=== PATIENT | female | born 1995 | race Caucasian/White ===

== ENCOUNTER → 2023-06-07 | Outpatient (CLI) | payer MEDICAID, SELFPAY ==
[2023-06-07 11:02] LABS: Absolute Lymphocyte Count 1.83 X10^3/uL (0.83-4.51); Absolute Neutrophil Count 5.4 X10^3/uL (2.0-7.7); Basophil# 0.02 X10^3/uL; Basophil% 0.3 % (0-1); Eosinophil# 0.22 X10^3/uL; Eosinophils% 2.8 % (0-5); Hemoglobin 11.7 g/dL (12.0-15.0); Lymphocyte # 1.83 X10^3/ul (0.83-4.51); Mean Corp Hgb Conc 31.6 g/dL (32-36); Mean Corpuscular Hgb 28.3 pg (27.0-32.0); Mean Corpuscular Volume 89.6 fL (81-99); Mean Platelet Vol. 10.7 fl (6.2-12.0); Monocyte# 0.51 X10^3/uL; Monocyte% 6.4 % (0-10); NRBC Flagged by Analyzer 0 % (0-5); Neutrophil # 5.35 X10^3/uL (2.7-7.7); Platelet Count 183 K/mm3 (150-450); RBC Distribution Width CV 12.7 % (11.6-14.6); RBC Distribution Width SD 41.4 fl (35.1-43.9); Red Blood Count 4.13 M/mm3 (4.2-5.4)
[2023-06-07 11:19] LABS: Glucose Challenge Gest 1H 50g 124 mg/dL (70-140)
[2023-06-07 11:50] LABS: NATERA MAILED SPECIMEN
[2023-06-07 12:03] LABS: HIV - WCH Non-Reactive (Nonreactive); Hepatitis C Antibody Non-Reactive (Nonreactive); Rubella IgG Reactive (Nonreactive); Syphilis Antibodies Non-reactive
[2023-06-08 22:07] LABS: Chlamydia By Nucleic Acid AMP Negative (Negative); Gonococcus By Nucleic Acid AMP Negative (Negative)
== END | disposition home or self-care (01) ==
PROVIDERS: Referring Provider Registered Nurse; Visit Provider Registered Nurse
DX: Z34.82 Encounter for supervision of other normal pregnancy, second trimester (principal)
CPT/HCPCS: 36415; 82950; 85025; 86703; 86762; 86780; 86803; 86850; 86900; 86901; 87491; 87591

== ENCOUNTER → 2023-07-07 | Outpatient (CLI) | payer MEDICAID, SELFPAY ==
--- NOTE | 2023-07-07 08:11 | EKG12_ITS ---
Test Reason : PALPS Blood Pressure : / mmHG Vent. Rate : 091 BPM Atrial Rate : 091 BPM P-R Int : 158 ms QRS Dur : 070 ms QT Int : 342 ms P-R-T Axes : 034 012 031 degrees QTc Int : 420 ms Normal sinus rhythm Normal ECG Confirmed by YORDAN ORTIZ, JESÚS ([id number]), photography editor RENA FUENTES ([id number]) on 07/27/2023 2:07:55 PM Referred By: Shruthi Ross Confirmed By:HARPREET FARR MD
== END | disposition home or self-care (01) ==
LOC: PSN 07:57
PROVIDERS: Referring Provider Nurse Practitioner Women's Health; Visit Provider Nurse Practitioner Women's Health
DX: Z34.90 Encounter for supervision of normal pregnancy, unspecified, unspecified trimester (principal)
CPT/HCPCS: 93005

== ENCOUNTER → 2023-07-31 | Outpatient (CLI) | payer MEDICAID, SELFPAY | END | disposition home or self-care (01) | PROVIDERS: Referring Provider Registered Nurse; Visit Provider Registered Nurse | DX: O09.90 Supervision of high risk pregnancy, unspecified, unspecified trimester (principal); Z3A.00 Weeks of gestation of pregnancy not specified | CPT/HCPCS: 87086 ==

== ENCOUNTER → 2023-08-28 | Outpatient (CLI) | payer MEDICAID, SELFPAY ==
[2023-08-28 14:06] LABS: Absolute Lymphocyte Count 1.56 X10^3/uL (0.83-4.51); Absolute Neutrophil Count 5.3 X10^3/uL (2.0-7.7); Basophil# 0.02 X10^3/uL; Basophil% 0.3 % (0-1); Eosinophil# 0.13 X10^3/uL; Eosinophils% 1.7 % (0-5); Hematocrit 34.4 % (37-47); Hemoglobin 10.9 g/dL (12.0-15.0); Lymphocyte # 1.56 X10^3/ul (0.83-4.51); Lymphocyte % 20.7 % (19-41); Mean Corp Hgb Conc 31.7 g/dL (32-36); Mean Corpuscular Hgb 28.6 pg (27.0-32.0); Mean Corpuscular Volume 90.3 fL (81-99); Mean Platelet Vol. 11.7 fl (6.2-12.0); Monocyte# 0.47 X10^3/uL; Monocyte% 6.2 % (0-10); NRBC Flagged by Analyzer 0 % (0-5); Neutrophil # 5.33 X10^3/uL (2.7-7.7); Neutrophil % 70.7 % (47-70); Platelet Count 193 K/mm3 (150-450); RBC Distribution Width CV 12.8 % (11.6-14.6); RBC Distribution Width SD 41.8 fl (35.1-43.9); Red Blood Count 3.81 M/mm3 (4.2-5.4); White Blood Count 7.5 K/mm3 (4.4-11.0)
[2023-08-28 14:36] LABS: Glucose Challenge Gest 1H 50g 142 mg/dL (70-140)
[2023-08-28 15:07] LABS: HIV - WCH Non-Reactive (Nonreactive); Syphilis Antibodies Non-reactive
== END | disposition home or self-care (01) ==
PROVIDERS: Referring Provider Registered Nurse; Visit Provider Registered Nurse
DX: O09.90 Supervision of high risk pregnancy, unspecified, unspecified trimester (principal); Z3A.00 Weeks of gestation of pregnancy not specified
CPT/HCPCS: 36415; 82950; 85025; 86703; 86780

== ENCOUNTER → 2023-08-31 | Outpatient (CLI) | payer MEDICAID, SELFPAY ==
[2023-08-31 08:08] LABS: Glucose GTT-Gestation. Fasting 104 mg/dL (<105)
[2023-08-31 09:01] LABS: Glucose GTT-Gestational 1 Hr 182 mg/dL (<190)
[2023-08-31 09:51] LABS: Glucose GTT-Gestational 2 Hr 161 mg/dL (<165)
[2023-08-31 11:28] LABS: Glucose GTT-Gestational 3 Hr 110 L (<145)
== END | disposition home or self-care (01) ==
LOC: LAB 07:13
PROVIDERS: Referring Provider Registered Nurse; Visit Provider Registered Nurse
DX: E66.9 Obesity, unspecified (principal)
CPT/HCPCS: 36415; 82951; 82952

== ENCOUNTER 2023-09-18 13:30 | Outpatient (RCR) | payer MEDICAID, SELFPAY | END 2023-10-05 23:59 | LOC: DC 13:30 | PROVIDERS: Referring Provider Registered Nurse; Visit Provider Registered Nurse | DX: O24.419 Gestational diabetes mellitus in pregnancy, unspecified control (principal) | CPT/HCPCS: 97802; 97803 ==

== ENCOUNTER → 2023-10-27 | Outpatient (CLI) | payer MEDICAID, SELFPAY | END | disposition home or self-care (01) | LOC: LABSPEC 11:35 | PROVIDERS: Referring Provider Obstetrics & Gynecology; Visit Provider Obstetrics & Gynecology | DX: O09.90 Supervision of high risk pregnancy, unspecified, unspecified trimester (principal); Z3A.00 Weeks of gestation of pregnancy not specified | CPT/HCPCS: 87081 ==

== ENCOUNTER → 2023-11-01 | Outpatient (CLI) | payer MEDICAID, SELFPAY ==
--- NOTE | 2023-11-01 11:55 | US_ITS ---
EXAM: US , LIMITED CLINICAL INDICATION: growth TECHNIQUE: Real-time limited ultrasound of the maternal uterus with image documentation. COMPARISON: No relevant prior studies available. FINDINGS: GESTATIONAL AGE: Estimated gestational age: 36 weeks, 0 days. TEDDY: 11/29/2023. EFW: Estimated weight: 2911 g (5710). BPD: 8.58 cm. HC: 32.34 cm. AC: 32.69 cm. FL: 7.11 cm. POSITION: Cephalic presentation. cardiac activity is present with heart rate of 148 bpm. PLACENTA: Posterior placenta. AMNIOTIC FLUID: Amniotic fluid volume is 17.4 with the largest vertical pocket of 5.3 cm. CERVIX: The cervix is partially obscured measuring up to 4.6 cm. US/OB Limited With Biometrics IMPRESSION: Single viable IUP. The estimated gestational age is 36 weeks, 0 days compared to 36 weeks, 1 day by dates. weight is 2911 g. No acute abnormality. Electronically Signed: Jeevan House DO at 13:38 EST ,
== END | disposition home or self-care (01) ==
LOC: US 11:55
PROVIDERS: Referring Provider Obstetrics & Gynecology; Visit Provider Obstetrics & Gynecology
DX: O24.419 Gestational diabetes mellitus in pregnancy, unspecified control (principal); Z3A.00 Weeks of gestation of pregnancy not specified
CPT/HCPCS: 76816

== ENCOUNTER 2023-11-08 18:25 | Outpatient (CLI) | payer MEDICAID, SELFPAY ==
--- OUTSIDE RECORDS SUMMARY | 2023-11-08 18:30 | XMS RPT_ITS | CCD ---
Author Name Unknown Address [address] [place] [address] Organization [facility] Care Team Providers Care Drainage Inspector Name Role Phone Edward Castellanos R Unavailable Unavailable Emanuel, Edward R Unavailable Unavailable Emanuel, Edward R Unavailable Unavailable Emanuel, Edward R Unavailable Unavailable Emanuel, Edward R Unavailable Unavailable Emanuel, Edward R Unavailable Unavailable Emanuel, Edward R Unavailable Unavailable Emanuel, Edward R Unavailable Unavailable Emanuel, Edward R Unavailable Unavailable Emanuel, Edward R Unavailable Unavailable Emanuel, Edward R Unavailable Unavailable None, No PCP Unavailable Unavailable Unavailable Unavailable Dr. Jeane Palacio Referring Dr. Jeane Salazar Attending Unav BERNARDO Meléndez Referring Unavailable BERNARDO ZHANG Attending Unavailable Allergies Allergy Classification Reported Allergen(s) Allergy Type Date of Onset Reaction(s) Facility (1 source) No Known Medication Allergies; Translations: [No Known Medication Allergies] Propensity to adverse reactions to drug (disorder) [facility] Repository Medications Completed/Discontinued Medications Medication Drug Class(es) Dates Sig (Normalized) Sig (Original) PNV Plus Multivitamin 27-1 MG TABS (1 source) PNV Plu s Multivitamin 27-1 MG TABS Quantity: 0 Refills: 0 Ordered: 26-Apr-2023 DO Active prochlorperazine 10 mg oral tablet (1 source) Phenothiazine Start: 04-26-2023 take 1 tablet by mouth every six hours Prochlorperazine Maleate 10 MG Oral Tablet TAKE 1 TABLET EVERY 6 HOURS NEEDED FOR NAUSEA. Quantity: 120 Refills: 10 Ordered: 26-Apr-2023 Jeane Palacio MD Start : 26-Apr-2023 Active Problems Active Problems Problem Classification Problem Date Documented Da te Episodic/Chronic Headache; including migraine (1 source) Migraine; Translations: [Migraine, unspecified, without mention of intractable migraine without mention of status migrainosus] Chronic Other circulatory disease (1 source) H/O: hypertension; Translations: [Personal history of other diseases of circulatory system] Episodic Other and delivery including normal (2 sources) Urine test positive; Translations: [ examination or test, positive result] Episodic Past or Other Problems Problem Classification Problem Date Documented Da te Episodic/Chronic Unclassified (1 source) Finding of menstrual bleeding; Translations: [Menstruation] Results Test Name Value Interpretation Reference Range Facil ity Vital Signs Date Time Vital Sign Value Performing Clinician Triston lity 04-26-2023 09:24-0400 Body height 162.56 cm No PCP None [employer] Work Phone: 04-26-2023 09:24-0400 Body mass index (BMI) [Ratio] 21.03 kg/m2 No PCP None [facility] Work Phone: 04-26-2023 09:24-0400 Body surface area Derived from formula 1.59 m2 No PCP None [employer] Work Phone: 04-26-2023 09:24-0400 Body weight 55.57 kg No PCP None [employer] Work Phone: 04-26-2023 09:24-0400 Diastolic blood pressure 72 mm[Hg] No PCP None [facility] Work Phone: 04-26-2023 09:24-0400 Systolic blood pressure 118 mm[Hg] No PCP None [employer] Work Phone: Encounters Encounter Date Encounter Type Care Provider Facility Start: 07-04-2023 End: 07-04-2023 ambulatory BERNARDO ZHANG [facility] Start: 04-26-[address] Jeane muro Palacio Facility:[id number] Start: 04-26-2023 Office outpatient ne w 30 minutes No PCP None [employer] Work Phone: Start: 08-08-2017 End: 08-09-2017 [facility] Facility:[facility] Start: 08-02-2017 End: 08-03-2017 [facility] Facility:[facility] Start: 08-01-2017 End: 08-02-2017 [facility] Facility:[facility] Start: 08-01-2017 End: 08-02-2017 [facility] Facility:[facility] Encounter for gynecological examination (general) (routine) without abnormal findings No PCP None [place] [id number] [employer] Work Phone: Procedures Date Procedure Procedure Detail Performing Clinician No history of surgery No PCP None Plan of Treatment Date Care Activity Detail Author Start: 05-17-2023 EPVOB, Provider: Jeane Palacio, Status: Pen, Time: 2:00 PM EPVOB, Provider: Jeane Palacio, Status: Pen, Time: 2:00 PM [place] [id number] [employer] Work Phone: Payers Date Payer Category Payer Unknown 1995 Unknown [id number] 1995 Unknown [id number] [id number] Unknown [id number] Unknown [id number] Unknown [id number] Social History Date Type Detail Facility Sexually active Sexually active [place] [address] [employer] Work Phone: History of Present illness Narrative 04-26-2023 Note Date & Type Note Facility 04-26-2023 History of Present illness Narrative Mata is a 28-year-old 2 para 1 who comes in for confirmation of . Patient reports she has a history of PCOS and when she was in [place] was started on control pills to try to help her shed her lining regularly. That was started this spring and was having irregular bleeding and then found out she was . She is taking vitamins. She reports that she is experiencing significant nausea especially in the morning and would like something for that. She reports her previous was uncomplicated vaginal delivery and no issues [facility] [employer] Work Phone: Summary Purpose Family History No Family History Records FoundUnknown Family Member Name Dates Details Family history of diabetes m marija: Grandmother, Grandfather(V18.0, Z83.3) Status:Active Family history of liver canc er: Grandmother(V16.0, Z80.0) Status:Active Family history of malignant neoplasm of skin: Grandfather(V16.8, Z80.8) Status:Active Family history of cardiac di sorder: Grandfather(V17.49, Z82.49) Status:Active Family history of myocardial infarction: Grandfather(V17.3, Z82.49) Status:Active Advance Directives No Advanced Directives Records FoundNo Advanced Directives Records FoundNo Advanced Directives Records FoundNo Advanced Directives Records Found Chief Complaint New patient here today for amenorrhea. She states she has PCOS and her periods are irregular. She would put on control and had a really long period end of January begininng of February. She went to [facility] when she moved here. She believes she is about 9 weeks . She has nausea and vomiting, breast tenderness, and no cramping or bleeding. Additional Source Comments INFORMATION SOURCE (unrecogn ized section and content) DATE CREATED AUTHOR AUTHOR'S ORGANIZ ATION 04/27/2023 [employer] DATE CREATED AUTHOR AUTHOR'S ORGANIZ ATION 05/18/2023 [facility] DATE CREATED AUTHOR AUTHOR'S ORGANIZ ATION 07/05/2023 [facility] FOR RECORDS PERTAINING TO PATIENTS WHO ARE OR HAVE BEEN ENROLLED IN A CHEMICAL DEPENDENCY/SUBSTANCEABUSE PROGRAM, SOME INFORMATION MAY BE OMITTED. This clinical summary was aggregated from multiple sources. Caution should be exercised in using it in the provision of clinical care. This summary normalizes information from multiple sources, and as a consequence, information in this document may materially change the coding, format and clinical context of patient data. In addition, data may be omitted in some cases. CLINICAL DECISIONS SHOULD BE BASED ON THE PRIMARY CLINICAL RECORDS. [facility] [employer] [facility]. provides no warranty or guarantee of the accuracy or completeness of information in this document.
[2023-11-08 18:40] VITALS: BP 130/91; PULSE 121; TEMP 37.3; O2SAT 98
[2023-11-08 18:42] VITALS: PULSE 116; O2SAT 98
[2023-11-08 18:56] VITALS: BP 137/89; PULSE 96
[2023-11-08 19:11] VITALS: BP 131/88; PULSE 95
[2023-11-08 19:17] LABS: ROM Internal Control Test YES-OK TO RESULT pt. (Internal QC)
[2023-11-08 19:18] LABS: ROM Patient Test Negative (Negative); Record Kit Lot#, ROM+ K1374
[2023-11-08 19:26] VITALS: BP 132/83; PULSE 93
[2023-11-08 19:27] VITALS: BMI 34.2
--- NOTE | 2023-11-12 22:43 | OB.TRI.PN ---
Progress Notes Date of Service: 11/08/23 Progress Note: Patient presents for triage evaluation secondary to possible ROM FHT: 120 Moderate variability reactive no decelerations category I tracing Anderson: irregular Contractions Assessment and plan: false labor no ROM Reactive NST, reassuring maternal and status patient discharged to home to follow-up as scheudled. See problem list details for additional plan information. Laboratory Studies: Laboratory Tests 11/08/23 Range/Units 18:40 Vag Amniotic Fld Detect Negative (Negative) Charges/Coding Procedures Urinary/Genital 52xxx-59xxx: [id number] non-stress test Interp
== END 2023-11-08 19:45 | disposition home or self-care (01) ==
LOC: WPOUT 18:27 → WP 18:29
PROVIDERS: Visit Provider Obstetrics & Gynecology
DX: O47.9 False labor, unspecified (principal); Z3A.00 Weeks of gestation of pregnancy not specified
CPT/HCPCS: 59025; 59050; 84112; 99221; G0378

== ENCOUNTER → 2023-11-10 | Outpatient (CLI) | payer MEDICAID, SELFPAY ==
[2023-11-10 12:17] LABS: Protein, Urine (Random) 17.5 mg/dL (<11.9); Protein:Creat Ratio 249 mg/g CRE (0-200)
[2023-11-10 12:42] LABS: Absolute Lymphocyte Count 1.85 X10^3/uL (0.83-4.51); Absolute Neutrophil Count 6.2 X10^3/uL (2.0-7.7); Basophil# 0.03 X10^3/uL; Basophil% 0.3 % (0-1); Eosinophil# 0.11 X10^3/uL; Eosinophils% 1.2 % (0-5); Hematocrit 35.7 % (37-47); Hemoglobin 11.1 g/dL (12.0-15.0); Lymphocyte # 1.85 X10^3/ul (0.83-4.51); Lymphocyte % 20.7 % (19-41); Mean Corp Hgb Conc 31.1 g/dL (32-36); Mean Corpuscular Hgb 25.3 pg (27.0-32.0); Mean Corpuscular Volume 81.5 fL (81-99); Mean Platelet Vol. 12.3 fl (6.2-12.0); Monocyte# 0.77 X10^3/uL; Monocyte% 8.6 % (0-10); NRBC Flagged by Analyzer 0 % (0-5); Neutrophil # 6.15 X10^3/uL (2.7-7.7); Neutrophil % 68.8 % (47-70); Platelet Count 162 K/mm3 (150-450); RBC Distribution Width CV 13.9 % (11.6-14.6); RBC Distribution Width SD 41.1 fl (35.1-43.9); Red Blood Count 4.38 M/mm3 (4.2-5.4)
[2023-11-10 13:21] LABS: ALB/GLOB Ratio 0.7 RATIO (0.9-2.4); AST(SGOT) 11 U/L (15-37); Alanine Aminotransfer ALT/SGPT 14 U/L (13-56); Albumin, Serum 2.8 g/dL (3.2-5.0); Alkaline Phosphatase 189 U/L (45-117); Anion Gap 7 (5-15); BUN 7 mg/dL (7-18); BUN/Creat Ratio 12.3 RATIO (10-20); Calcium,Total 9.3 mg/dL (8.5-10.1); Chloride 107 mmol/L (98-107); Creatinine, Serum 0.57 mg/dL (0.55-1.02); EST Glomerular Filtration Rate 133 mL/min (>60); Est Glom Filt Rate - Afr Amer 161 mL/min (>60); Globulin 4.1 g/dL (2.2-4.2); Glucose 90 mg/dL (74-106); Potassium 4.2 mmol/L (3.5-5.1); Protein, Total 6.9 g/dL (6.4-8.2); Sodium Level 136 mmol/L (136-145)
== END | disposition home or self-care (01) ==
LOC: LABSPEC 12:00 → LAB 12:13
PROVIDERS: Referring Provider Advanced Practice Midwife; Visit Provider Advanced Practice Midwife
DX: Z34.90 Encounter for supervision of normal pregnancy, unspecified, unspecified trimester (principal); Z3A.00 Weeks of gestation of pregnancy not specified
CPT/HCPCS: 36415; 80053; 82570; 84156; 85025

== ENCOUNTER 2023-11-22 07:18 | Inpatient (IN) | payer MEDICAID, SELFPAY ==
[2023-11-22] VITALS (36 sets, daily range): BP systolic 106–155; BP diastolic 63–90; PULSE 83–115; RESP 15; TEMP 36.5–37.1; O2SAT 91–100; BMI 34.8
--- OUTSIDE RECORDS SUMMARY | 2023-11-22 07:24 | XMS RPT_ITS | CCD ---
Author Name Unknown Address [address] [place] [address] Organization [facility] Care Team Providers Care Ruby On Rails Developer Name Role Phone Edward Castellanos R Unavailable [...] Propensity to adverse reactions to drug (disorder) [facility] Repository Medications Completed/Discontinued Medications Medication Drug Class(es) [...] Body height 162.56 cm No PCP None [employer] Work Phone: 04-26-2023 09:24-0400 Body mass index (BMI) [Ratio] 21.03 kg/m2 No PCP None [employer] Work Phone: 04-26-2023 09:24-0400 Body surface area Derived from formula 1.59 m2 No PCP None [employer] Work Phone: 04-26-2023 09:24-0400 Body weight 55.57 kg No PCP None [employer] Work Phone: 04-26-2023 09:24-0400 Diastolic blood pressure 72 mm[Hg] No PCP None [employer] Work Phone: 04-26-2023 09:24-0400 Systolic blood pressure 118 mm[Hg] No PCP None [employer] Work Phone: Encounters Encounter Date Encounter Type Care Provider Facility Start: 07-04-2023 End: 07-04-2023 ambulatory BERNARDO ZHANG [facility] Start: 04-26-[address] Jeane muro Palacio Facility:[id number] Start: 04-26-2023 Office outpatient ne w 30 minutes No PCP None [employer] Work Phone: Start: 08-08-2017 End: 08-09-2017 [facility] Facility:[facility] Start: 08-02-2017 End: 08-03-2017 [facility] Facility:[facility] Start: 08-01-2017 End: 08-02-2017 [facility] Facility:[facility] Start: 08-01-2017 End: 08-02-2017 [facility] Facility:[facility] Encounter for gynecological examination (general) (routine) without abnormal findings No PCP None [place] [id number] [id number] Work Phone: Procedures Date Procedure Procedure Detail Performing Clinician No history of surgery No PCP None Plan of Treatment Date Care Activity Detail Author Start: 05-17-2023 EPVOB, Provider: Jeane Palacio, Status: Pen, Time: 2:00 PM EPVOB, Provider: Jeane Palacio, Status: Pen, Time: 2:00 PM [place] [id number] [id number] Work Phone: Payers Date Payer Category Payer Unknown 1995 Unknown [id number] [id number]. [id number] 1995 Unknown [id number] Unknown [id number] Unknown [id number] Unknown [id number] Social History Date Type Detail Facility Sexually active Sexually active [place] [id number] [id number] Work Phone: History of Present illness Narrative 04-26-2023 Note Date & Type Note Facility 04-26-2023 History of Present illness Narrative Mata is a 28-year-old 2 para 1 who comes in for confirmation of . Patient reports she has a history of PCOS and when she was in [place] was started on control pills to try [...] was uncomplicated vaginal delivery and no issues [facility] [employer] Work Phone: Summary Purpose Family History No [...] January begininng of February. She went to [facility] when she moved here. She believes she is about 9 weeks . She has nausea and vomiting, breast tenderness, and no cramping or bleeding. Additional Source Comments INFORMATION SOURCE (unrecogn ized section and content) DATE CREATED AUTHOR AUTHOR'S ORGANIZ ATION 04/27/2023 [employer] DATE CREATED AUTHOR AUTHOR'S ORGANIZ ATION 05/18/2023 [facility] DATE CREATED AUTHOR AUTHOR'S ORGANIZ ATION 07/05/2023 [facility] FOR RECORDS PERTAINING TO PATIENTS WHO ARE [...] BE BASED ON THE PRIMARY CLINICAL RECORDS. [facility] [employer] [facility]. provides no warranty or guarantee of the accuracy or completeness of information in this document.
--- NOTE | 2023-11-22 07:53 | HP.PCM.OB_ITS ---
HPI - General General Date of Admission: 11/22/23 HPI Narrative MATA ROBLES, is a 28 y/o @ 39 weeks 1 day who presents to L&D for induction of labor due to gestational diabetes on metformin. She was 4 cm in the office last. pt is currently sitting up in bed and nurses are working on getting her IV in place. Maternal Data Information TEDDY Calculator Estimated Delivery Date Method Current WG Current Estimate 11/28/23 Ultrasound #1 39w 1d PFSH PFSH Home Medications hydrocortisone 1 % topical cream (Anti-Itch (hydrocortisone)) 1 applic topical BID-QID PRN itching #28.35 grams 06/07/23 [Rx Last Taken Unknown] vit 112-iron 3.33 mg-folate 0.33 [id number] chew tablet 3 tab PO DAILY 07/05/23 [History Last Taken 11/21/23 20:00] blood-glucose meter #1 ea 08/31/23 [Rx Last Taken Unknown] blood sugar diagnostic (Blood Glucose Test strips) #120 ea 09/11/23 [Rx Last Taken Unknown] lancets #200 ea 09/11/23 [Rx Last Taken Unknown] metformin 1,000 mg tablet 1,000 mg PO BID GDM #60 tabs 10/24/23 [Rx Last Taken 11/21/23 20:00] Allergy/AdvReac Type Severity Reaction Status Date / Time No Known Allergies Allergy Verified 11/22/23 07:51 Family History Grandmother Cancer cervical Diabetes Father Cancer Liver Grandfather Cancer Lung Paternal Grandfather Cancer Skin Maternal Diabetes Heart disease Brother Diabetes Mother Hypertension Surgical History S/P tonsillectomy and adenoidectomy Social History household members: spouse number of children: 1 current occupational status: employed current occupation: [employer] Smoking Status: Never smoker alcohol intake: never substance use type: does not use seatbelt use: always do you feel safe at home: Yes additional social history: - Suraj- Self Employed History 2 Elective abortions Hx Para 1 Spontaneous abortions Hx # Term Pregnancies Ectopic pregnancies Hx # Pregnancies Multiple births # of living children 1 Past Pregnancies Del. Date Name GA/Weeks Outcome Route Bth Weight Gen Labor Lgth Anes t deysi Tushar Aponteatcheryl Provider FOB Unknown Pavel - 2014 live - full term Suraj Visit Details Expected Delivery Route/Plan Labor Preferences- CB/BF classes: no labor support person: Suraj labor intervention preferences: [] pain management options preferred: epidural cut cord/dad catch: cord : yes PP control planned: discussed discussed possible routes of delivery and associated risks: [] special requests: [] Plans Covid status: unvaxed Flu vaccine: declines Tdap vaccine: declines Rhogam: NA LARC form signed: yes Problem list reviewed and updated with the most current plan of care details and appropriate orders placed. Relevant counseling for the gestational age provided. Continue routine care and follow up unless otherwise noted in visit notes/problem list details OB Flowsheet Initial Weight: 196 lb Date -?-?-?-?-?-?--?-?-?-?-?-?- EGA Weight BP Urine Prot -?-?-?-?-?-?-?-?-?-?-?-?- Glucose FHR FuHt Pres Dilation -?-?-?-?-?-?-?-?-?-?-?-?- Effaced St Visit Note 06/07/23 -?-?-?-?-?-?-?-?-?-?-?-?- 15w 1d 196 lb 6 oz (+6 oz) 122/85 Negative -?-?-?-?-?-?-?-?-?-?-?-?- Negative 142 -?-?-?-?-?-?-?-?-?-?-?-?- LC- transfer of care from . gc/ct, nob labs today. genetic today. declines a fp. ultrasound ordered. 07/05/23 -?-?-?-?-?-?-?-?-?-?-?-?- 19w 1d 199 lb 2 oz (+3 lb 2 oz) 126/82 -?-?-?-?-?-?-?-?-?-?-?-?- 145 -?-?-?-?-?-?-?-?-?-?-?-?- -No VB. States step dad has heart monitor and she is having increased heart rate to 140s with minimal activity. Confirmed in office. EKG ordered. Reassured probably related. Increase fluids. 07/31/23 -?-?-?-?-?-?-?-?-?-?-?-?- 22w 6d 203 lb 4 oz (+7 lb 4 oz) 131/84 -?-?--?-?-?-?-?-?-?-?-?-?- 143 23 -?-?-?-?-?-?-?-?-?-?-?-?- LC- no vb/crampi ng. 28 week labs ordered. 08/28/23 -?-?-?-?-?-?-?-?-?-?-?-?- 26w 6d 211 lb 4 oz (+15 lb 4 oz) 132/82 Negative -?-?-?-?-?-?-?-?-?-?-?-?- Negative 141 27 -?-?-?-?-?-?-?-?-?-?-?-?- -NO VB, LOF. G ood FM. 28 wk labs, larc. Has umbilical hernia and noting more protrubent and tender end of day. Enc rest, [place] band. Call if severe/persistent pain or go to ED. 09/11/23 -?-?-?-?-?--?-?-?-?-?-?-?- 28w 6d 205 lb (+9 lb) 120/78 Trace -?-?-?-?-?-?-?-?-?-?-?-?- Negative 140 28 -?-?-?-?-?-?-?-?-?-?-?-?- LC- no vb/ctx/lo f/ good fm. all fs over 106. all pp under 120.to start on metformin 500mg bid and will f/u in 1 week. cw JV agrees with plan. 09/18/23 -?-?-?-?-?-?-?-?-?-?-?-?- 29w 6d 204 lb (+8 lb) 121/83 Negative -?-?-?-?-?-?-?-?-?-?-?-?- Negative 133 30 -?-?-?-?-?-?-?-?-?-?-?-?- LC- no vb/ctx/lo f. good fm. metformin not yet started due to rx issues, re- prescribed. excellent control pp,rto in 1 week. 09/27/23 -?-?-?-?-?-?-?-?-?-?-?-?- 31w 1d 202 lb (+6 lb) 112/78 Trace -?-?-?-?-?-?-?-?-?-?-?-?- Negative 140 31 -?-?-?-?-?-?-?-?-?-?-?-?- LC- no vb/ctx/lo f. good fm. all pp under 120, 4/10 FS over 95, to increase metformin to 1000mg bid. consulted with SM. agreed with plan. will send in referral to dr. jeffery. 10/10/23 -?-?-?-?-?-?-?-?-?-?-?-?- 33w 0d 206 lb (+10 lb) 110/75 Negative -?-?-?-?-?-?-?-?-?-?-?-?- Negative 140 -?-?-?-?-?-?-?-?-?-?-?-?- NST only reactiv e 10/18/23 -?-?-?-?-?-?-?-?-?-?-?-?- 34w 1d 204 lb (+8 lb) 122/80 Negative -?-?-?-?-?-?-?-?-?-?-?-?- Negative 130 35 -?-?-?-?-?-?-?-?-?-?-?-?- JV- NST reactive . fasting glucose max is 87, 2 hr pp all below 120. on metformin 500 mg bid. growth ultrasound ordered for 36 weeks. continue twice weekly nsts. 10/20/23 -?-?-?-?-?-?-?-?-?-?-?-?- 34w 3d 205 lb (+9 lb) 118/78 -?-?-?-?-?-?-?-?-?-?-?-?- 1,230 -?-?-?-?-?-?-?-?-?-?-?-?- JV- NST reactive . glucose stable. no complaints today. 10/24/23 -?-?-?-?-?-?-?-?-?-?-?-?- 35w 0d 205 lb (+9 lb) 122/72 Negative -?-?-?-?-?-?-?-?-?-?-?-?- Negative 140 -?-?-?-?-?-?-?-?-?-?-?-?- MH-NST only reac tive. LC increased metformin to 1000mg bid and now needs new RX 10/27/23 -?-?-?-?-?-?-?-?-?-?-?-?- 35w 3d 206 lb 4 oz (+10 lb 4 oz) 124/82 Negative -?-?-?-?-?-?-?-?-?-?-?-?- Negative 130 35 Cephalic 3 -?-?-?-?-?-?-?-?-?-?-?-?- 70 -2 JV- nst re active, andrey ever 2-3 minutes palpating mild to moderate. gbs collected, labor precautions discussed. 11/03/23 -?-?--?-?-?-?-?-?-?-?-?-?- 36w 3d 206 lb (+10 lb) 113/77 Negative -?-?-?-?-?-?-?-?-?-?-?-?- Negative 130 36 Cephalic 3 -?-?-?-?-?-?-?-?-?-?--?-?- 60 -3 LC- nst re active, ctx every 3-4 minutes, no change in exam. labor precautions discussed. LC- nst reactive, ctx every 3-4 minutes, no change in exam.no vb/lof. good fm. labor precautions discussed. gbs negative. growth scan obtained, report pending. glucose controlled on metformin 11/07/23 -?-?-?-?-?-?-?-?-?-?-?-?- 37w 0d 205 lb 8 oz (+9 lb 8 oz) 127/85 Negative -?-?-?-?-?-?-?-?-?-?-?-?- Negative 135 37 Cephalic 4 -?-?-?-?-?-?-?-?-?-?-?-?- 60 -2 KW-nst avelina ctive today. contractions q 3 minutes. growth US and IOL discussed for 39 weeks for GDM with metformin. KW-nst reactive today. contr actions q 3 minutes. growth US and IOL discussed for 39 weeks for GDM with metformin. labor precautions 11/10/23 -?-?-?-?-?-?-?-?-?-?-?-?- 37w 3d 206 lb 6 oz (+10 lb 6 oz) 137/84 Negative -?-?-?-?-?-?-?-?-?-?-?-?- Negative 135 -?-?-?-?-?-?-?-?-?-?-?-?- KW-nst today. re active. labs for headache x 2 days-has not tried tylenol. 11/14/23 -?-?-?-?-?-?-?-?-?-?-?-?- 38w 0d 208 lb 8 oz (+12 lb 8 oz) 125/86 Negative -?-?-?-?-?-?-?-?-?-?-?-?- Negative 130 -?-?-?-?-?-?-?-?-?-?-?-?- SM- no vb lof go od fm n oregular ctx scheduled for IOL next monday per patient. BS controlled ROS Constitutional Constitutional: Denies change in weight, fatigue, fever(s), headache(s), poor appetite or weakness Eyes Eyes: Denies blurry vision, change in vision, seeing flashes or spots in vision ENT HEENT: Denies dizziness, headache(s), loss taste/smell or sore throat Cardiovascular Cardiovascular: Denies chest pain, dizziness, dyspnea, irregular heart rhythm, leg edema, palpitations, rapid heart rate or vomiting Respiratory/Chest Respiratory/Chest: Denies chest tightness, cough, dyspnea or breast pain Gastrointestinal Gastrointestinal: Denies abdominal pain, anorexia, constipation, cramping, diarrhea, hemorrhoids, vomiting or weight changes Genitourinary Genitourinary: Denies dysuria, flank pain, genital lesions, genital pain, urinary frequency or urinary urgency Musculoskeletal Musculoskeletal: Denies back pain, difficulty walking, joint pain, limited range of motion, muscle cramps or numbness Integumentary Integumentary: Denies lesions or unusual bruising Neurologic Neurologic: Denies abnormal movements, abnormal speech, dizziness, numbness, seizure-like activity or syncope Psychiatric Psychiatric: Denies anxiety, behavioral changes, change in appetite, change in libido, cognitive impairment, confusion, depression, difficulty concentrating, hallucinations or suicidal thoughts Endocrine Endocrinology: Denies excessive sweating, polydipsia or polyuria Hematologic/Lymphatic Hematologic/Lymphatic: Denies easy bleeding, easy bruising or lymphadenopathy Allergic/Immunologic Allergic/Immunologic: Denies itchy eyes, lip swelling, seasonal rhinorrhea, rhinitis, throat swelling, tongue swelling, eczemia, wheezing or asthma Vital Signs Vital Signs Vital Signs: 11/22/23 07:38 11/22/23 07:39 11/22/23 07:39 Temperature Temperature Source Pulse Rate 102 H Blood Pressure 138/77 H BP Systolic 138 BP Diastolic 77 Pulse Ox 99 11/22/23 07:38 11/22/23 07:38 11/22/23 07:38 Temperature Temperature Source Temporal Pulse Rate 94 Blood Pressure BP Systolic BP Diastolic Pulse Ox 99 11/22/23 07:38 Temperature 98.7 F Temperature Source Pulse Rate Blood Pressure BP Systolic BP Diastolic Pulse Ox Weight Weight: 209 lb 8 oz Body Mass Index (BMI) 34.8 Physical Exam Const alert, oriented x3, no apparent distress and healthy appearing General Appearance: cooperative; Negative for anxious HEENT normocephalic Face and Sinus: normal facial exam Eyes EOMs intact bilaterally and no scleral icterus General Eye: normal appearance of both eyes Neck full ROM and supple Lymph Lymphatic: no lymphadenopathy noted Chest Chest: abnormal inspection of the chest Resp normal respiratory effort Effort and Inspection: able to speak in complete sentences Cardio regular rate GI soft to palpation and non-tender Inspection: gravid Palpation: soft; Negative for tender Back/Spine no CVA tenderness Extremity normal to inspection, full ROM and no clubbing, cyanosis or edema General Extremity: Negative for calf tenderness or edema Skin Lesions: no lesions Rashes: no rashes Psych mental status grossly normal Labs Labs Labs: Blood Type O POSITIVE Antibody Screen NEGATIVE Hct 35.7 % (37-47) L Hgb 11.1 g/dL (12.0-15.0) L Obstetrics Ultrasound Syphilis Total Ab Non-reactive VZV IgG Antibody 1668 index (Immune >165) Rubella IgG Antibody Reactive (Nonreactive) Hepatitis C Antibody Non-Reactive (Nonreactive) Chlamydia DNA (ÁNGEL) Negative (Negative) N.gonorrhoeae DNA (ÁNGEL) Negative (Negative) HIV 1&2 Antibody Non-Reactive (Nonreactive) Glucose 1 Hr 50 gm 142 mg/dL (70-140) H Gest Glucose Tolerance MG/DL Assessment & Plan (1) Gestational diabetes mellitus (GDM): QUALIFIERS: Gestational diabetes mellitus control: oral hypoglycemic-controlled Trimester: third trimester Qualified Code(s): O24.415 - Gestational diabetes mellitus in , controlled by oral hypoglycemic drugs COMMENT: metformin 500mg BID, increased to 1000mg BID(09/27). 2xweekly NST at 32 weeks growth at 36 weeks- (57%) delivery by 39 weeks (2) Postural orthostatic tachycardia syndrome: COMMENT: confirmed with activity in office. EKG ordered. normal. (3) Supervision of high-risk : QUALIFIERS: Trimester: second trimester Qualified Code(s): O09.92 - Supervision of high risk , unspecified, second trimester COMMENT: [id number] TEDDY 11/28/2023. girl. JULIUS Zhao. : Suraj (4) Obesity (BMI 30.0-34.9): COMMENT: early glucose- 124 normal healthy weight gain in (5) : QUALIFIERS: Weeks of gestation: 38 weeks Qualified Code(s): Z3A.38 - 38 weeks gestation of COMMENT: GBS neg,normal anatomy scan. NIPT LR. PLAN: Plan Patient presents IOL, plan management for with pitocin/AROM. Pain management: plans epidural. GBS negative. Management of any complications: diet controlled gestational diabetes I have reviewed the [facility] and made any clinically relevant updates.
[2023-11-22] MEDS: Lactated Ringers 1,000 ML 50 ML IV (08:00)
[2023-11-22 08:31] LABS: Absolute Lymphocyte Count 2.44 X10^3/uL (0.83-4.51); Absolute Neutrophil Count 6.1 X10^3/uL (2.0-7.7); Basophil# 0.02 X10^3/uL; Basophil% 0.2 % (0-1); Eosinophil# 0.17 X10^3/uL; Eosinophils% 1.7 % (0-5); Hematocrit 35.2 % (37-47); Hemoglobin 10.6 g/dL (12.0-15.0); Lymphocyte # 2.44 X10^3/ul (0.83-4.51); Lymphocyte % 24.8 % (19-41); Mean Corp Hgb Conc 30.1 g/dL (32-36); Mean Corpuscular Hgb 24.3 pg (27.0-32.0); Mean Corpuscular Volume 80.7 fL (81-99); Mean Platelet Vol. 12.8 fl (6.2-12.0); Monocyte# 0.99 X10^3/uL; Monocyte% 10.1 % (0-10); NRBC Flagged by Analyzer 0 % (0-5); Neutrophil # 6.13 X10^3/uL (2.7-7.7); Neutrophil % 62.5 % (47-70); Platelet Count 156 K/mm3 (150-450); RBC Distribution Width CV 14.3 % (11.6-14.6); RBC Distribution Width SD 41.7 fl (35.1-43.9); Red Blood Count 4.36 M/mm3 (4.2-5.4); White Blood Count 9.8 K/mm3 (4.4-11.0)
[2023-11-22] MEDS: LACTATED RINGERS 500 ML 999 ML IV ×2 (08:32→10:58)
[2023-11-22] MEDS: Oxytocin 15 Units/NS 250ml 15 UNITS/250 ML IV.SOLN 2 UNITS IV (08:47)
[2023-11-22 09:34] LABS: Hepatitis B Surface Antigen Non-Reactive (Nonreactive)
[2023-11-22 09:37] LABS: Syphilis Antibodies Non-reactive
[2023-11-22 09:38] LABS: Bedside Glucose 96 mg/dL (74-106)
[2023-11-22 09:38] LABS: Bedside Glucose 87 mg/dL (74-106)
[2023-11-22] MEDS: fentaNYL-bupivacaine (epidural) 100 ML BAG EPIDURAL (11:41)
[2023-11-22 13:12] LABS: Bedside Glucose 85 mg/dL (74-106)
[2023-11-22] MEDS: Lactated Ringers 1,000 ML 200 ML IV (16:00)
[2023-11-22] MEDS: Oxytocin 15 Units/NS 250ml 15 UNITS/250 ML IV.SOLN 83 UNITS IV (16:58)
--- NOTE | 2023-11-22 17:21 | EX.PCM.OBRPT ---
Assessment & Plan (1) Gestational diabetes mellitus (GDM): QUALIFIERS: Gestational diabetes mellitus control: oral hypoglycemic-controlled Trimester: third trimester Qualified Code(s): O24.415 - Gestational diabetes mellitus in , controlled by oral hypoglycemic drugs COMMENT: metformin 500mg BID, increased to 1000mg BID(09/27). 2xweekly NST at 32 weeks growth at 36 weeks- (57%) delivery by 39 weeks (2) Postural orthostatic tachycardia syndrome: COMMENT: confirmed with activity in office. EKG ordered. normal. (3) Supervision of high-risk : QUALIFIERS: Trimester: second trimester Qualified Code(s): O09.92 - Supervision of high risk , unspecified, second trimester COMMENT: [id number] TEDDY 11/28/2023. girl. JULIUS Zhao. : Suraj (4) Obesity (BMI 30.0-34.9): COMMENT: early glucose- 124 normal healthy weight gain in (5) : QUALIFIERS: Weeks of gestation: 38 weeks Qualified Code(s): Z3A.38 - 38 weeks gestation of COMMENT: GBS neg,normal anatomy scan. NIPT LR. Maternal Data Information TEDDY Calculator Estimated Delivery Date Method Current WG Current Estimate 11/28/23 Ultrasound #1 39w 1d Gestational age: 39 weeks 1 day Vaginal Delivery Maternal Presentation Maternal Presentation: Medically Indicated Induction Maternal Presentation: IOL for gestational diabetes Type of Induction: Pitocin and Amniotomy Medical Reason for Induction: Maternal Medical Condition: list: (Gestational diabetes ) Operative Information Date of Procedure: 11/22/23 Pre-Operative Diagnosis: 28 y/o @ 39 weeks 1 day, gestational diabetes Post-Operative Diagnosis: 28 y/o @ 39 weeks 1 day, gestational diabetes Surgery / Procedure Performed: Spontaneous Vaginal Delivery Type of Anesthesia: Epidural Drain: Pierce to straight drain Estimated Blood Loss: 50cc Time of Delivery: 16:22 Findings Description of Procedure: Patient began pushing and delivered the head in the MÓNICA presentation. The head was delivered atraumatically and a loose nuchal cord ?1 was identified and difficult to reduce. The was delivered through the cord. The anterior and posterior shoulders delivered without complication followed by the rest of the and the infant was placed on the maternal abdomen. Delayed cord clamping was employed for approximately 60 seconds. Cord was clamped and cut and gentle traction was applied to the cord and the placenta delivered spontaneously immediately following it was noted to be intact with three-vessel cord. The perineum and vagina were inspected and noted to have no laceration. EBL was 50cc. Patient and tolerated delivery well. Presentation: Vertex Amniotic Membrane Rupture Type: Artificial Time of Membrane Rupture: 1:15 Amniotic Fluid Description: Clear Placental Delivery Description: Spontaneous Placenta Disposition: [facility] Cord Vessel Description: 3 Vessels Cord Entanglement: Around neck x 1, tight Nuchal Cord Compression: With compression A Gender: Female (1 minute): 9 (5 minute): 9 Delayed Cord Clamping: Yes Post Vaginal Delivery Medications Given After Delivery: IV Pitocin Episiotomy Description: None Laceration: None Complication Complications: None Multi Select Codes Urinary/Genital Urinary/Genital CPT Codes: 67475 Vaginal Delivery+ Care([facility])
[2023-11-22 17:35] LABS: Bedside Glucose 72 mg/dL (74-106)
--- NOTE | 2023-11-22 17:37 | DCINST_ITS ---
Discharge Instructions Diet Discharge Diet: No restrictions Activity Discharge Activity: Return to Normal Activity, May Not Drive (while taking narcotic pain medications.) and May Shower May resume sexual activity in: 4-6 weeks Dressing / Incision Call your doctor if your incision/area has: Continuous Slow Oozing, Sudden Increased Bleeding, Increased Pain/ Swelling, Increased Redness and Foul Smelling Discharge Follow Up Care Please Follow Up With: Alisa Gandara, DO When: Call [phone] to make an appointment with your doctor in 6 weeks. If you had elevated blood pressure or 4th degree laceration, you will need to be seen in 2 weeks. Test Results: Test results from this visit will be discussed in further detail at your follow- up appointment, if applicable. Discharge Plan Admission Admit Date/Time: 11/22/23 07:18 Attending Provider: Alisa Gandara Primary Care Provider: Deon Henderson,Amanda Primary Discharge Orders/Prescriptions Prescriptions: No Action hydrocortisone [Anti-Itch (HC)] 1 % cream 1 applic topical BID-QID PRN (Reason: itching) Qty: 28.35 0RF PNV [id number] 3.33 mg iron- 0.33 mg tablet,chewable 3 tab PO DAILY (DME) Blood Glucose Test Strip See Rx Instructions .Route Qty: 120 6RF Rx Instructions: As directed-fasting & 2 hr post meals (DME) lancets Misc See Rx Instructions .MEDSUPPLY Qty: 200 5RF Rx Instructions: As directed-fasting & 2 HR post meals metformin 1,000 mg tablet 1,000 mg PO BID Qty: 60 4RF (DME) blood-glucose meter Misc See Rx Instructions .MEDSUPPLY Qty: 1 0RF Rx Instructions: As directed- Test fasting and 2 hours after meals Referrals / Follow Up: Care Physician,No Primary [Primary Care Provider] -
[2023-11-22] MEDS: Naproxen 500 MG Tablet PO (18:34)
[2023-11-22] MEDS: 0.9% Saline Lock 10 ML Syringe IV (20:29)
[2023-11-23] VITALS (8 sets, daily range): BP systolic 96–122; BP diastolic 58–83; PULSE 86–103; RESP 15–20; TEMP 36.2–37; O2SAT 98
[2023-11-23] MEDS: Acetaminophen 500 MG Tablet 1000 MG PO ×3 (02:14→17:31)
[2023-11-23 05:33] LABS: Bedside Glucose 84 mg/dL (74-106)
--- NOTE | 2023-11-23 07:29 | PCM.PN.OB ---
Subjective Subjective Patient doing well without complaints. Tolerating PO. Ambulating and voiding without difficulty. infant feeding well. Denies chest pain, shortness of breath, calf pain/swelling, fevers, chills, lightheadedness. Objective Data Objective Data Vital Signs: Vital Signs Temp Pulse Resp BP Pulse Ox O2 Del Method 98.6 F 95 20 H 96/59 L 98 Room Air 11/23/23 03:17 11/23/23 03:17 11/23/23 03:17 11/23/23 03:11/23/23 03:11/23/23 03:17 Oxygen Delivery Method Room Air Weight: 209 lb 8 oz Body Mass Index (BMI) 34.8 Intake & Output: Intake and Output for Last 24 Hours 11/21/23 11/22/23 11/23/23 23:59 23:59 23:59 Intake Total 2547.07 / 2547.07 Output Total 1175 / 1175 350 / 350 Balance 1372.07 / 1372.07 -350 / -350 Lab / Micro Data 11/22/23 08:00 Labs: Laboratory Results - last 24 hr 11/22/23 08:00: WBC 9.8, RBC 4.36, Hgb 10.6 L, Hct 35.2 L, MCV 80.7 L, MCH 24.3 L, MCHC 30.1 L, RDW Std Deviation 41.7, RDW Coeff of Bertin 14.3, Plt Count 156, MPV 12.8 H, Immature Gran % (Auto) 0.700, Neut % (Auto) 62.5, Lymph % (Auto) 24.8, [place] % (Auto) 10.1 H, Eos % (Auto) 1.7, Baso % (Auto) 0.2, Absolute Neuts (auto) 6.1, Absolute Lymphs (auto) 2.44, Nucleated RBC % 0, Syphilis Total Ab Non-reactive, Hep Bs Antigen Non-Reactive, Blood Type O POSITIVE, Antibody Screen NEGATIVE 11/22/23 08:08: POC Glucose 96 11/22/23 09:09: POC Glucose 87 11/22/23 12:49: POC Glucose 85 11/22/23 17:17: POC Glucose 72 L 11/23/23 05:08: POC Glucose 84 ROS Constitutional Constitutional: Reports systems reviewed and no addt'l complaints, except as documented Cardiovascular Cardiovascular: Reports systems reviewed and no addt'l complaints, except as documented Respiratory/Chest Respiratory/Chest: Reports systems reviewed and no addt'l complaints, except as documented Gastrointestinal Gastrointestinal: Reports systems reviewed and no addt'l complaints, except as documented Physical Exam Const alert, oriented x3 and no apparent distress HEENT Head and Scalp: atraumatic Resp normal respiratory effort GI soft to palpation and non-tender Bimanual Exam - Vag & Uterus: uterus non-tender Uterus Palpation: uterus fundus firm (below Umbilicus) Assessment & Plan (1) Vaginal delivery: PLAN: Plan s/p PPD # 1 1. routine post delivery care 2. doing well feeding- support given 3. rh positive 4. rubella immune Capacity Legal Blueprint Developer Reflex Medical hold order details:: IF a medical hold is selected below, a suggested order for a MEDICAL HOLD will reflex upon signing the document. Next of kin: [place] law dictates a PRIORITY LIST for identifying legal decision-maker/legal next of kin in the following order (LNOK): 1st: The patient?s legal guardian, if any 2nd: The patient's spouse (if status is questionable, consult Risk Management) 3rd: The patient?s adult child(cedric) (majority, if multiple children) 4th: The patient?s parents 5th: The patient?s adult siblings (majority, if multiple children siblings)
[2023-11-23] MEDS: Naproxen 500 MG Tablet PO (08:16)
== END 2023-11-23 18:08 | disposition home or self-care (01) | DRG 560 ==
PROVIDERS: Admitting Provider Obstetrics & Gynecology; Visit Provider Obstetrics & Gynecology
DX: O24.425 Gestational diabetes mellitus in childbirth, controlled by oral hypoglycemic drugs (principal); Z37.0 Single live birth; O69.2XX0 Labor and delivery complicated by other cord entanglement, with compression, not applicable or unspecified; O99.214 Obesity complicating childbirth; Z79.899 Other long term (current) drug therapy; Z3A.39 39 weeks gestation of pregnancy
CPT/HCPCS: 59025; 59050; 82962; 85025; 86780; 86850; 86900; 86901; 87340; 99221; J7120; A4216; G0378